=== PATIENT | male | born 1985 | race American Indian/Alaskan Native ===

== ENCOUNTER 2017-09-06 16:29 | Emergency (ER) | payer OTHER ==
[2017-09-06 17:07] VITALS: TEMP 98.7
--- NOTE | 2017-09-06 17:39 | ED PDOC ---
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 Pt says he was and remains asymptomatic but took both Losartan and carvedilol as prescribed by PMD, at 3:30pm. Current ED evaluation, BP is 162/111. He denies chest pain, shortness of breath, fever, change in vision, headache, chills, weakness, drug or alcohol use or dizziness or any other complaints at this time. Time/Duration: Prior to Arrival Symptom Onset: Sudden Symptom Course: Improving Quality: Unable to Describe Severity Level: 1 Activities at Onset: Rest, Light Context: Sitting Past Medical History - Provider Review Nursing Documentation Reviewed: Yes - Travel History Have you recently traveled outside [place] w/in the past 3 mons?: No - Infectious Disease Hx of Infectious Diseases: None - Cardiac Hx Hypertension: Yes - Endocrine/Metabolic Hx Diabetes Mellitus Type 2: Yes - Hematological/Oncological Hx Blood Disorders: No - Psychiatric Hx Substance Use: No - Anesthesia Hx Anesthesia: No Family/Social History - Physician Review Nursing Documentation Reviewed: Yes Family/Social History: Diabetes Smoking Status: Unknown If Ever Smoked Hx Alcohol Use: No Hx Substance Use: No Allergies/Home Meds Allergies/Adverse Reactions: Allergies No Known Allergies Allergy (Verified 09/06/17 17:05) Home Medications: Home Meds Medication Instructions Recorded Confirmed Insulin Detemir [Levemir] 0 unit SC BID 09/06/17 09/06/17 Losartan [Cozaar] 100 mg PO DAILY 09/06/17 09/06/17 MetFORMIN [glucOPHAGE] 1,000 mg PO BID 09/06/17 09/06/17 Review of Systems - Review of Systems Systems not reviewed;Unavailable: Unstable Vital Signs Constitutional: Normal. absent: Fatigue Eyes: Normal. absent: Vision Changes, Photophobia ENT: Normal. absent: Hearing Changes Respiratory: Normal. absent: SOB Cardiovascular: Normal. absent: Chest Pain Gastrointestinal: Normal. absent: Abdominal Pain Genitourinary Male: Normal Musculoskeletal: Normal Skin: Normal Neurological: Normal Endocrine: Normal Hemo/Lymphatic: Normal Psychiatric: Normal Physical Exam Vital Signs Reviewed: Yes Vital Signs Temp Pulse Resp BP Pulse Ox 09/06/17 21:05 75 18 145/89 97 09/06/17 20:41 75 18 145/89 98 09/06/17 18:56 79 18 148/96 H 98 09/06/17 17:01 98.7 F 96 H 20 179/111 H 99 Temperature: Afebrile Blood Pressure: Hypertensive Pulse: Regular Respiratory Rate: Normal Appearance: Positive for: Well-Appearing, Non-Toxic, Comfortable Pain Distress: None Mental Status: Positive for: Alert and Oriented X 3 Finger Stick Blood Glucose: 248 - Systems Exam Head: Present: Atraumatic, Normocephalic Pupils: Present: PERRL Extroacular Muscles: Present: EOMI Conjunctiva: Present: Normal. No: Injected Mouth: Present: Moist Mucous Membranes Neck: Present: Normal Range of Motion Respiratory/Chest: Present: Clear to Auscultation, Good Air Exchange. No: Respiratory Distress, Accessory Muscle Use Cardiovascular: Present: Regular Rate and Rhythm, Normal S1, S2. No: Murmurs Abdomen: Present: Normal Bowel Sounds. No: Tenderness, Distention, Peritoneal Signs Back: Present: Normal Inspection Upper Extremity: Present: Normal Inspection, Normal ROM, NORMAL PULSES, Capillary Refill < 2s. No: Cyanosis, Edema Lower Extremity: Present: Normal Inspection, Capillary Refill < 2 s. No: Edema Neurological: Present: GCS=15, CN II-XII Intact, Speech Normal, Motor Func Grossly Intact, Normal Sensory Function, Gait Normal Skin: Present: Warm, Dry, Normal Color. No: Rashes Psychiatric: Present: Alert, Oriented x 3, Normal Insight, Normal Concentration Medical Decision Making ED Course and Treatment: 09/06/17 17:39 Impression Pt is a 32 yr old male with PMH of DMII and HTN that presents to the ED on the advice of PMD who noted the BP was 199/120, earlier today. On exam, no significant findings; BP trending down since taking Carvedilol and Losaran at 3:30pm today Plan cardiac w/u with ISO CXR, EKG assess and dispo Progress note 09/06/17 18:32 BP remains high and Total CK 600-->likely due to metformin and dehydration Troponin pending 09/06/17 18:55 Negative Troponin BP trending down 199/120>>179/111>>169/111>>148/96 Counseled pt on HTN and DMII care and management and discussed dire consequences of not taking medications; strongly advised to see PMD for f/u Pt states he is on zhen care therefore referred him to [facility] clinic in for on-going care and stress test Pt verbally acknowledged understanding VSS on d/c and ambulating well - Lab Interpretations Lab Results: 09/06/17 17:50 09/06/17 17:50 Lab Results 09/06/17 17:50: PT 12.1, INR 1.06, APTT 29.7 09/06/17 17:50: Sodium 139, Potassium 3.9, Chloride 100, Carbon Dioxide 27, Anion Gap 16, BUN 12, Creatinine 0.9, Est GFR ( Amer) > 60, Est GFR (Non- Af Amer) > 60, Random Glucose 242 H, Calcium 8.7, Magnesium 1.6 L, Total Bilirubin 1.0, AST 28, ALT 37, Alkaline Phosphatase 61, Lactate Dehydrogenase 511, Total Creatine Kinase 600 H, CK-MB (CK-2) 3.8 H, CK-MB (CK-2) % Cancelled, Troponin I < 0.01, NT-Pro-B Natriuret Pep 63.3, Total Protein 7.1, Albumin 3.9, Globulin 3.1, Albumin/Globulin Ratio 1.3 09/06/17 17:50: WBC 6.4, RBC 5.19, Hgb 14.0, Hct 39.0 L, MCV 75.1 L, MCH 27.0, MCHC 35.9, RDW 12.9, Plt Count 195, MPV 11.8 H, Gran % 65.7, Lymph % (Auto) 25.1 , Coke % (Auto) 6.6 H, Eos % (Auto) 2.4, Baso % (Auto) 0.2, Gran # 4.20, Lymph # (Auto) 1.6, Coke # (Auto) 0.4, Eos # (Auto) 0.2, Baso # (Auto) 0.01 - RAD Interpretation Radiology Orders: 09/06/17 17:31 CHEST PORTABLE [RAD] Stat - EKG Interpretation Interpreted by ED Physician: Yes (NSR with nonspecific T-wave abnormality; Rate 82bpm) Disposition/Present on Arrival - Present on Arrival Any Indicators Present on Arrival: Yes History of DVT/PE: No History of Uncontrolled Diabetes: No Urinary Catheter: No History of Decub. Ulcer: No History Surgical Site Infection Following: None - Disposition Have Diagnosis and Disposition been Completed?: Yes Diagnosis: Hypertension associated with diabetes, Abnormal creatine kinase level, Hyperglycemia Disposition: HOME/ ROUTINE Disposition Time: 19:47 Patient Plan: Discharge Condition: STABLE Discharge Instructions (ExitCare): High Blood Pressure in Adults, Controlling Your Blood Pressure Through Lifestyle Additional Instructions: BERTRAND DIOR, thank you for letting us take care of you today. Your provider was Scott Stephen DO and KAJAL Vu and you were treated for HIGH BLOOD PRESSURE. The emergency medical care you received today was directed at your acute symptoms. If you were prescribed any medication, please fill it and take as directed. It may take several days for your symptoms to resolve. Return to the Emergency Department if your symptoms worsen, do not improve, or if you have any other problems. PLEASE GO TO [facility] IN THE NEXT FEW DAYS TO HAVE YOUR MEDICATION EVALUATED. ASK FOR HgBA1C UNDERSTAND THAT YOU MUST TAKE THE BLOOD PRESSURE AND DIABETIC MEDICATION DAILY-- ->IT WILL SAVE YOUR LIFE Please contact your doctor or call one of the physicians/clinics you have been referred to that are listed on the Patient Visit Information form that is included in your discharge packet. Bring any paperwork you were given at discharge with you along with any medications you are taking to your follow up visit. Our treatment cannot replace ongoing medical care by a primary care provider outside of the emergency department. Thank you for allowing the [facility] team to be part of your care today. If you had an X-Ray or CT scan: A Radiologist will review the ED reading if any change in treatment is needed we will contact you. If you had a blood, urine, or wound culture: It will take several days for the results, if any change in treatment is needed we will contact you. If you had an STI test: It will take 48 hours for the results. Please call after 1 week if you have not heard back. Referrals: Megan Slaughter MD [Primary Care Provider] - Follow up with primary [facility] at [facility] [Outside] - Follow up with primary Forms: [employer] Connect (Setswana), WORK NOTE
[2017-09-06 18:13] LABS: BASO # 0.01 K/mm3 (0.0-2.0); BASO % 0.2 % (0.0-3.0); EOS # 0.2 (0.0-0.7); EOS % 2.4 % (1.5-5.0); GRAN # 4.2 (1.4-6.5); GRAN % 65.7 % (50.0-68.0); LYMPH # 1.6 (1.2-3.4); LYMPH % 25.1 % (22.0-35.0); MEAN CELL VOLUME 75.1 fl (80.0-105.0); MEAN CORPUSCULAR HGB CONC 35.9 g/dl (31.0-37.0); MEAN PLATELET VOLUME 11.8 fl (7.0-11.0); MONO # 0.4 (0.1-0.6); MONO % 6.6 % (1.0-6.0); RBC 5.19 10^6/uL (3.5-6.1); RED CELL DISTRIBUTION WIDTH 12.9 % (11.5-14.5); WHITE BLOOD COUNT 6.4 10^3/ul (4.5-11.0)
[2017-09-06 18:21] LABS: ALB/GLOB RATIO 1.3 (1.1-1.8); ALBUMIN 3.9 g/dL (3.0-4.8); ALT/SGPT 37 U/L (7-56); AST/SGOT 28 U/L (17-59); BLOOD UREA NITROGEN 12 mg/dL (7-21); CALCIUM 8.7 mg/dL (8.4-10.5); GFR AFRICAN-AMERICAN > 60; GFR NON-AFRICAN AMERICAN > 60; INR 1.06 (0.93-1.08); PARTIAL THROMBOPLASTIN TIME 29.7 Seconds (25.1-36.5); PROTHROMBIN TIME 12.1 SECONDS (9.4-12.5)
--- NOTE | 2017-09-06 18:23 | RAD ---
HISTORY: HBP COMPARISON: No prior. FINDINGS: LUNGS: No active pulmonary disease. PLEURA: No significant pleural effusion identified, no pneumothorax apparent. CARDIOVASCULAR: Cardiomediastinal silhouette appears prominent ; however, this cannot accurately assessed on an AP projection. OSSEOUS STRUCTURES: No significant abnormalities. VISUALIZED UPPER ABDOMEN: Normal. OTHER FINDINGS: None. IMPRESSION: No active disease.
[2017-09-06 18:32] LABS: B-TYPE NATRIURETIC PEPTIDE 63.3 pg/mL (0-450); TROPONIN I < 0.01 ng/mL
[2017-09-06 18:43] LABS: CK-MB 3.8 ng/mL (0.0-3.6)
[2017-09-06 18:56] VITALS: RESP 18
[2017-09-06 20:41] VITALS: BP 145/89; PULSE 75
[2017-09-06 21:22] VITALS: O2SAT 97
--- NOTE | 2017-09-07 09:47 | CARD ---
APPROVED REPORT EKG Measurement Heart [id number] CT 166P41 [id number] <Conclusion> Normal sinus rhythm Moderate voltage criteria for LVH, may be normal variant Nonspecific T wave abnormality
== END 2017-09-06 21:05 | disposition home or self-care (01) ==
LOC: ED 16:29
DX: I10 Essential (primary) hypertension (principal); E11.65 Type 2 diabetes mellitus with hyperglycemia; R74.8 Abnormal levels of other serum enzymes

== ENCOUNTER 2018-04-17 06:13 | Emergency (ER) | payer OTHER ==
[2018-04-17 06:28] VITALS: TEMP 98.2
[2018-04-17] MEDS ORDERED: Ibuprofen 100 MG/5 ML (BULK) PO STA (07:12)
--- NOTE | 2018-04-17 07:29 | ED PDOC ---
Arrival/HPI - General Chief Complaint: Cough, Cold, Congestion Time Seen by Provider: 04/17/18 07:09 Historian: Patient - History of Present Illness Narrative History of Present Illness (Text): 04/17/18 07:29 33 year old male, with past medical history of diabetes and hypertension, presents to emergency department complaining of cough with abdominal pain, sore throat, and subjective fever for the past three days. Patient also reports associated diarrhea. Patient states he received the flu vaccine earlier last year. Patient notes sick contact at home with partner and children. Patient denies any headache, dizziness, chest pain, shortness of breath, vomiting, back pain, neck pain, or any other complaints. Time/Duration: < week (3 days) Symptom Onset: Gradual Symptom Course: Unchanged Activities at Onset: Light Context: Home Past Medical History - Provider Review Nursing Documentation Reviewed: Yes - Infectious Disease Hx of Infectious Diseases: None - Cardiac Hx Hypertension: Yes - Endocrine/Metabolic Hx Diabetes Mellitus Type 2: Yes - Hematological/Oncological Hx Blood Disorders: No - Psychiatric Hx Substance Use: No - Anesthesia Hx Anesthesia: No Family/Social History - Physician Review Nursing Documentation Reviewed: Yes Family/Social History: Unknown Family HX Smoking Status: Unknown If Ever Smoked Hx Alcohol Use: No Hx Substance Use: No Allergies/Home Meds Allergies/Adverse Reactions: Allergies No Known Allergies Allergy (Verified 04/17/18 06:22) Home Medications: Home Meds Medication Instructions Recorded Confirmed Insulin Detemir [Levemir] 0 unit SC BID 09/06/17 04/17/18 Losartan [Cozaar] 100 mg PO DAILY 09/06/17 04/17/18 MetFORMIN [glucOPHAGE] 1,000 mg PO BID 09/06/17 04/17/18 Review of Systems - Physician Review All systems were reviewed & negative as marked: Yes - Review of Systems Constitutional: Fevers ENT: Sore Throat Respiratory: Cough. absent: SOB Cardiovascular: absent: Chest Pain Gastrointestinal: Abdominal Pain, Diarrhea. absent: Vomiting Genitourinary Male: absent: Frequency, Hematuria, Urinary Output Changes Musculoskeletal: absent: Back Pain, Neck Pain Skin: absent: Rash Neurological: absent: Headache, Dizziness Physical Exam Vital Signs Reviewed: Yes Vital Signs Temp Pulse Resp BP Pulse Ox 04/17/18 06:24 98.2 F 91 H 18 150/116 H 99 Temperature: Afebrile Blood Pressure: Normal Pulse: Regular Respiratory Rate: Normal Appearance: Positive for: Well-Appearing, Non-Toxic, Comfortable Pain Distress: None Mental Status: Positive for: Alert and Oriented X 3 - Systems Exam Head: Present: Atraumatic, Normocephalic Pupils: Present: PERRL Extroacular Muscles: Present: EOMI Conjunctiva: Present: Normal Mouth: Present: Moist Mucous Membranes Pharnyx: Present: ERYTHEMA. No: EXUDATE Neck: Present: Normal Range of Motion Respiratory/Chest: Present: Clear to Auscultation, Good Air Exchange. No: Respiratory Distress, Accessory Muscle Use Cardiovascular: Present: Regular Rate and Rhythm, Normal S1, S2. No: Murmurs Abdomen: No: Tenderness, Distention, Peritoneal Signs Back: Present: Normal Inspection Upper Extremity: Present: Normal Inspection. No: Cyanosis, Edema Lower Extremity: Present: Normal Inspection. No: Edema Neurological: Present: GCS=15, CN II-XII Intact, Speech Normal Skin: Present: Warm, Dry, Normal Color. No: Rashes Psychiatric: Present: Alert, Oriented x 3, Normal Insight, Normal Concentration Medical Decision Making ED Course and Treatment: 04/17/18 07:36 Impression: 33 year old male presents to emergency department complaining of cough, abdomi nal pain, fever, and sore throat for the past 3 days. viral syndrome ro strep influenza Plan: -- Strep -- Influenza -- Reassess and disposition Prior Visits: Notes and results from previous visits were reviewed. Progress Notes: 04/17/18 09:47 abd soft in nad. influneza neg. pt well appearin lungs cta. sat well stable for dc. - Medication Orders Current Medication Orders: Discontinued Medications Ibuprofen (Motrin Oral Susp) 400 mg PO STAT STA Stop: 04/17/18 07:13 Last Admin: 04/17/18 07:26 Dose: 400 mg MAR Pain/Vitals Document 04/17/18 07:26 (Rec: 04/17/18 07:26 MR [id number]) Pain Reassessment Is This A Pain ReAssessment? Yes Sleep Is patient sleeping during reassessment? No Presence of Pain Presence of Pain Yes Location Pain Location Body Site Abdomen Description Intermittent Intensity 6 Scale Used Numeric - Scribe Statement The provider has reviewed the documentation as recorded by the Scribe Adwoa Goldstein All medical record entries made by the Scribe were at my direction and personally dictated by me. I have reviewed the chart and agree that the record accurately reflects my personal performance of the history, physical exam, medical decision making, and the department course for this patient. I have also personally directed, reviewed, and agree with the discharge instructions and disposition. Disposition/Present on Arrival - Present on Arrival Any Indicators Present on Arrival: No History of DVT/PE: No History of Uncontrolled Diabetes: No Urinary Catheter: No History of Decub. Ulcer: No History Surgical Site Infection Following: None - Disposition Have Diagnosis and Disposition been Completed?: Yes Diagnosis: Viral syndrome Disposition: HOME/ ROUTINE Disposition Time: 08:40 Condition: STABLE Discharge Instructions (ExitCare): Viral Syndrome (DC) Additional Instructions: return to er with worsening symptoms or concerns. Prescriptions: Oseltamivir Phosphate [Tamiflu] 75 mg PO BID #10 capsule Forms: [employer] Connect (Cypriot), WORK NOTE
[2018-04-17 08:41] VITALS: BP 141/93; PULSE 89; RESP 17; O2SAT 97
== END 2018-04-17 08:43 | disposition home or self-care (01) ==
LOC: ED 06:13
DX: B34.9 Viral infection, unspecified (principal); E11.9 Type 2 diabetes mellitus without complications; I10 Essential (primary) hypertension